=== PATIENT | female | born 1945 | race Caucasian/White ===

== ENCOUNTER 2017-11-13 13:18 | Emergency (ER) | payer MEDICARE, OTHER ==
[~2017-11-13] VITALS: Ht 172.7 cm; Wt 97.5 kg
[~2017-11-13 13:18] MED LIST: LEVSOD125 PO; PANT40 PO; ROSU10TA PO; TRIHYD253A PO
[2017-11-13 15:26] LABS: BASOPHILS ABSOLUTE AUTO 0.01 K/mm3 (0.00-0.23); BASOPHILS PERCENT AUTO 0 % (0-2); EOSINOPHILS ABSOLUTE AUTO 0.03 K/mm3 (0.00-0.68); EOSINOPHILS PERCENT AUTO 1 % (0-6); Hematocrit 44.6 % (33.0-51.0); Hemoglobin 14.8 g/dL (11.5-16.0); Mean Corpuscular HGB 31.3 pg (26.0-34.0); Mean Corpuscular HGB Conc 33.2 g/dL (31.5-36.5); Mean Corpuscular Volume 94 fL (80-100); Mean Platelet Volume 9.9 fL (9.1-12.4); Platelet Count 189 K/mm3 (150-400); RDW Standard Deviation 45.1 fL (35.1-46.3); Red Blood Cell Count 4.73 M/mm3 (3.80-5.20); White Blood Cell Count 5.36 K/mm3 (4.00-11.30)
[2017-11-13 15:37] LABS: IMMATURE GRAN ABSOLUTE AUTO 0.03 K/mm3 (0.00-0.10); IMMATURE GRAN PERCENT AUTO 1 % (0-1); LYMPHOCYTES ABSOLUTE AUTO 2.18 K/mm3 (0.84-5.20); LYMPHOCYTES PERCENT AUTO 41 % (21-46); MONOCYTES ABSOLUTE AUTO 0.45 K/mm3 (0.16-1.47); MONOCYTES PERCENT AUTO 8 % (4-13); NEUTROPHILS ABSOLUTE AUTO 2.66 K/mm3 (1.96-9.15); NEUTROPHILS PERCENT AUTO 50 % (41-73)
[2017-11-13 15:52] LABS: Alanine Aminotransfer (ALT/SGP 44 U/L (12-78); Albumin/Globulin Ratio 1.1 (0.8-1.8); Alk Phos 58 U/L (50-136); Anion Gap 9 mmol/L (6-16); Aspartate Aminotrans (AST/SGOT 38 U/L (12-37); Bilirubin, Total 0.4 mg/dL (0.1-1.0); Blood Urea Nitrogen 16 mg/dL (8-24); Bun/Creatinine Ratio 17.8 (12.0-20.0); CO2, Blood 29 mmol/L (21-32); Calcium, Blood 8.9 mg/dL (8.5-10.1); Chloride, Blood 104 mmol/L (98-108); Globulin, Blood 3.6 g/dL (2.2-4.0); Glomerular Filtration Rate >60 (60-); Glucose, Blood 110 mg/dL (70-99); Potassium, Blood 3.4 mmol/L (3.5-5.5); Sodium, Blood 142 mmol/L (136-145); Total Protein, Blood 7.6 g/dL (6.4-8.2)
[2017-11-13 16:46] LABS: Influenza A Negative (NEGATIVE); Influenza B Negative (NEGATIVE)
[2017-11-13] MEDS ORDERED: Prednisone20 MG PO (18:08)
[2017-11-13] MEDS ORDERED: ALBU90OI INH (18:08)
[2017-11-13] MEDS ORDERED: BENZ100A PO (18:08)
[2018-10-12] MEDS ORDERED: OXYC5 (17:23)
== END 2017-11-13 18:24 | disposition home or self-care (01) ==
LOC: ER 13:18
PROVIDERS: Physician Assistant
DX: J40 Bronchitis, not specified as acute or chronic (principal); Z88.8 Allergy status to other drugs, medicaments and biological substances; E03.9 Hypothyroidism, unspecified; F32.9 Major depressive disorder, single episode, unspecified; K21.9 Gastro-esophageal reflux disease without esophagitis; I10 Essential (primary) hypertension; E78.5 Hyperlipidemia, unspecified; Z87.891 Personal history of nicotine dependence
CPT/HCPCS: 36415; 71046; 80053; 85025; 87804; 94640; 99283

== ENCOUNTER 2018-10-12 12:02 | Inpatient (IN) | payer MEDICARE, OTHER ==
[~2018-10-12] VITALS: Ht 172.7 cm; Wt 106.4 kg
[~2018-10-12 12:02] MED LIST changes: +ALBU90OI INH; +BENZ100A PO; +Prednisone20 MG PO
[2018-10-12 12:50] LABS: BASOPHILS ABSOLUTE AUTO 0.04 K/mm3 (0.00-0.23); BASOPHILS PERCENT AUTO 0 % (0-2); EOSINOPHILS ABSOLUTE AUTO 0.26 K/mm3 (0.00-0.68); EOSINOPHILS PERCENT AUTO 2 % (0-6); Hematocrit 38.2 % (33.0-51.0); IMMATURE GRAN ABSOLUTE AUTO 0.03 K/mm3 (0.00-0.10); IMMATURE GRAN PERCENT AUTO 0 % (0-1); LYMPHOCYTES ABSOLUTE AUTO 2.41 K/mm3 (0.84-5.20); LYMPHOCYTES PERCENT AUTO 21 % (21-46); MONOCYTES ABSOLUTE AUTO 0.86 K/mm3 (0.16-1.47); MONOCYTES PERCENT AUTO 8 % (4-13); Mean Corpuscular HGB 31.2 pg (26.0-34.0); Mean Corpuscular HGB Conc 31.4 g/dL (31.5-36.5); Mean Corpuscular Volume 99 fL (80-100); Mean Platelet Volume 9.5 fL (9.1-12.4); NEUTROPHILS ABSOLUTE AUTO 7.73 K/mm3 (1.96-9.15); NEUTROPHILS PERCENT AUTO 68 % (41-73); Platelet Count 293 K/mm3 (150-400); RDW Coefficient Variation 13.2 % (11.7-14.2); RDW Standard Deviation 47.8 fL (35.1-46.3); Red Blood Cell Count 3.85 M/mm3 (3.80-5.20); White Blood Cell Count 11.33 K/mm3 (4.00-11.30)
[2018-10-12 13:12] LABS: Albumin, Blood 2.9 g/dL (3.4-5.0); Albumin/Globulin Ratio 0.7 (0.8-1.8); Bilirubin, Total 0.6 mg/dL (0.1-1.0); Bun/Creatinine Ratio 18.7 (12.0-20.0); Calcium, Blood 8.7 mg/dL (8.5-10.1); Creatinine, Blood 1.07 mg/dL (0.40-1.00); Globulin, Blood 4.1 g/dL (2.2-4.0); Potassium, Blood 4.5 mmol/L (3.5-5.5)
[2018-10-12 15:06] LABS: International Normalized Ratio 0.97
[2018-10-12 15:55] LABS: PCO2 Arterial 48.5 mmHg (35-45); PO2 Arterial 91.3 mmHg (80-100)
[2018-10-12] MEDS ORDERED: LEVSOD125 PO (17:22)
[2018-10-12] MEDS ORDERED: GABA300 PO (17:22)
[2018-10-12] MEDS ORDERED: CIPR250 PO (17:23)
[2018-10-12] MEDS ORDERED: OLME20 PO (17:23)
[2018-10-12] MEDS ORDERED: ATOR10 PO (17:23)
[2018-10-12] MEDS ORDERED: OXYC5 PO (17:23)
[2018-10-12 17:58] LABS: Source, Urine Catheter
[2018-10-12 18:08] LABS: Bilirubin, Urine Neg (Neg); Blood, Urine Neg (Neg); Glucose Qualitative, Urine Neg (Neg); Ketones, Urine Neg (Neg); Leukocyte Esterase, Urine Neg (Neg); Nitrite, Urine Neg (Neg); Protein, Urine Neg (Neg); Urobilinogen, Urine NORM (Normal)
[2018-10-12 18:21] LABS: Appearance, Urine Clear (Clear); Color, Urine Yellow (P-Yellow)
[2018-10-13 04:03] LABS: BASOPHILS ABSOLUTE AUTO 0.04 K/mm3 (0.00-0.23); BASOPHILS PERCENT AUTO 0 % (0-2); EOSINOPHILS ABSOLUTE AUTO 0.29 K/mm3 (0.00-0.68); EOSINOPHILS PERCENT AUTO 3 % (0-6); Hematocrit 33.3 % (33.0-51.0); Hemoglobin 10.7 g/dL (11.5-16.0); IMMATURE GRAN ABSOLUTE AUTO 0.05 K/mm3 (0.00-0.10); IMMATURE GRAN PERCENT AUTO 1 % (0-1); LYMPHOCYTES ABSOLUTE AUTO 2.25 K/mm3 (0.84-5.20); LYMPHOCYTES PERCENT AUTO 22 % (21-46); MONOCYTES ABSOLUTE AUTO 0.93 K/mm3 (0.16-1.47); MONOCYTES PERCENT AUTO 9 % (4-13); Mean Corpuscular HGB 31.5 pg (26.0-34.0); Mean Corpuscular HGB Conc 32.1 g/dL (31.5-36.5); Mean Corpuscular Volume 98 fL (80-100); Mean Platelet Volume 9.9 fL (9.1-12.4); NEUTROPHILS ABSOLUTE AUTO 6.72 K/mm3 (1.96-9.15); NEUTROPHILS PERCENT AUTO 65 % (41-73); Platelet Count 273 K/mm3 (150-400); RDW Standard Deviation 46.4 fL (35.1-46.3); White Blood Cell Count 10.28 K/mm3 (4.00-11.30)
[2018-10-13 04:20] LABS: Bun/Creatinine Ratio 18.3 (12.0-20.0); Calcium, Blood 8.7 mg/dL (8.5-10.1); Creatinine, Blood 1.09 mg/dL (0.40-1.00); Potassium, Blood 4.6 mmol/L (3.5-5.5)
[2018-10-14 05:38] LABS: BASOPHILS ABSOLUTE AUTO 0.03 K/mm3 (0.00-0.23); BASOPHILS PERCENT AUTO 0 % (0-2); EOSINOPHILS ABSOLUTE AUTO 0.36 K/mm3 (0.00-0.68); EOSINOPHILS PERCENT AUTO 4 % (0-6); Hematocrit 33.3 % (33.0-51.0); Hemoglobin 10.8 g/dL (11.5-16.0); IMMATURE GRAN ABSOLUTE AUTO 0.03 K/mm3 (0.00-0.10); IMMATURE GRAN PERCENT AUTO 0 % (0-1); LYMPHOCYTES ABSOLUTE AUTO 2.05 K/mm3 (0.84-5.20); LYMPHOCYTES PERCENT AUTO 24 % (21-46); MONOCYTES ABSOLUTE AUTO 0.83 K/mm3 (0.16-1.47); MONOCYTES PERCENT AUTO 10 % (4-13); Mean Corpuscular HGB 31.7 pg (26.0-34.0); Mean Corpuscular HGB Conc 32.4 g/dL (31.5-36.5); Mean Corpuscular Volume 98 fL (80-100); Mean Platelet Volume 9.5 fL (9.1-12.4); NEUTROPHILS ABSOLUTE AUTO 5.21 K/mm3 (1.96-9.15); NEUTROPHILS PERCENT AUTO 61 % (41-73); Platelet Count 299 K/mm3 (150-400); RDW Coefficient Variation 12.9 % (11.7-14.2); RDW Standard Deviation 45.9 fL (35.1-46.3); Red Blood Cell Count 3.41 M/mm3 (3.80-5.20); White Blood Cell Count 8.51 K/mm3 (4.00-11.30)
[2018-10-14 05:55] LABS: Bun/Creatinine Ratio 19.8 (12.0-20.0); Calcium, Blood 8.8 mg/dL (8.5-10.1); Creatinine, Blood 1.06 mg/dL (0.40-1.00); Potassium, Blood 4.3 mmol/L (3.5-5.5)
[2018-10-18 03:40] LABS: BASOPHILS ABSOLUTE AUTO 0.03 K/mm3 (0.00-0.23); BASOPHILS PERCENT AUTO 0 % (0-2); EOSINOPHILS ABSOLUTE AUTO 0.31 K/mm3 (0.00-0.68); EOSINOPHILS PERCENT AUTO 4 % (0-6); Hematocrit 33.9 % (33.0-51.0); Hemoglobin 10.5 g/dL (11.5-16.0); IMMATURE GRAN ABSOLUTE AUTO 0.03 K/mm3 (0.00-0.10); IMMATURE GRAN PERCENT AUTO 0 % (0-1); LYMPHOCYTES ABSOLUTE AUTO 2.38 K/mm3 (0.84-5.20); LYMPHOCYTES PERCENT AUTO 29 % (21-46); MONOCYTES ABSOLUTE AUTO 0.58 K/mm3 (0.16-1.47); MONOCYTES PERCENT AUTO 7 % (4-13); Mean Corpuscular HGB 30.3 pg (26.0-34.0); Mean Corpuscular Volume 98 fL (80-100); Mean Platelet Volume 9.5 fL (9.1-12.4); NEUTROPHILS ABSOLUTE AUTO 5.03 K/mm3 (1.96-9.15); NEUTROPHILS PERCENT AUTO 60 % (41-73); Platelet Count 358 K/mm3 (150-400); RDW Coefficient Variation 12.9 % (11.7-14.2); RDW Standard Deviation 45.8 fL (35.1-46.3); Red Blood Cell Count 3.46 M/mm3 (3.80-5.20); White Blood Cell Count 8.36 K/mm3 (4.00-11.30)
[2018-10-18 03:57] LABS: Anion Gap 9 mmol/L (6-16); Blood Urea Nitrogen 15 mg/dL (8-24); Bun/Creatinine Ratio 16.9 (12.0-20.0); CO2, Blood 26 mmol/L (21-32); Calcium, Blood 8.5 mg/dL (8.5-10.1); Chloride, Blood 111 mmol/L (98-108); Creatinine, Blood 0.89 mg/dL (0.40-1.00); Glomerular Filtration Rate >60 (60-); Glucose, Blood 100 mg/dL (70-99); Potassium, Blood 3.9 mmol/L (3.5-5.5); Sodium, Blood 146 mmol/L (136-145)
[2018-10-19] MEDS ORDERED: ACET325 PO (08:46)
[2018-10-19] MEDS ORDERED: VOLTAREN100 GM SC (08:48)
[2018-10-19] MEDS ORDERED: DOC250 PO (08:49)
[2018-10-19] MEDS ORDERED: SENN187 PO (08:50)
[2018-10-19] MEDS ORDERED: MIRALAX17 GM PO (08:52)
[2018-10-19] MEDS ORDERED: TRAZ100 PO (08:52)
[2018-10-19] MEDS ORDERED: FENTANYL1 EAC1 TOP ×2 (11:30→11:31)
== END 2018-10-19 12:00 | disposition home or self-care (01) | DRG 862 ==
LOC: ER 12:02 → PCU 18:09
PROVIDERS: Hospitalist; Internal Medicine; Physician Assistant
DX: T81.41XA Infection following a procedure, superficial incisional surgical site, initial encounter (principal); A41.9 Sepsis, unspecified organism; J18.9 Pneumonia, unspecified organism; J96.01 Acute respiratory failure with hypoxia; L76.34 Postprocedural seroma of skin and subcutaneous tissue following other procedure; E87.1 Hypo-osmolality and hyponatremia; N17.9 Acute kidney failure, unspecified; T81.44XA Sepsis following a procedure, initial encounter; R50.9 Fever, unspecified; I10 Essential (primary) hypertension; E78.5 Hyperlipidemia, unspecified; E03.9 Hypothyroidism, unspecified; G47.33 Obstructive sleep apnea (adult) (pediatric); F51.9 Sleep disorder not due to a substance or known physiological condition, unspecified; M54.9 Dorsalgia, unspecified; Z87.891 Personal history of nicotine dependence
CPT/HCPCS: 10030; 36415; 36600; 71046; 72132; 72158; 80048; 80053; 81003; 82803; 83605; 84145; 85025; 85610; 85730; 87040; 87070; 87075; 87081; 87086; 87205; 88108; 94640; 94760; 94762; 96365; 96367; 96375; 97116; 97140; 97162; 97166; 97530; 97535; 99285-25; A9577; G8978; G8979; G8980; G8987; G8988; J0456; J0696; J1170; J2405; J7050; J7120; Q9967

== ENCOUNTER 2018-11-21 07:39 | Day surgery (SDC) | payer MEDICARE, OTHER ==
[~2018-11-21] VITALS: Ht 172.7 cm; Wt 100.0 kg
[~2018-11-21 07:39] MED LIST changes: +ACET325 PO; +ATOR10 PO; +CIPR250 PO; +DOC250 PO; +FENTANYL1 EAC1 TOP; +GABA300 PO; +MIRALAX17 GM PO; +OLME20 PO; +OXYC5 PO; +SENN187 PO; +TRAZ100 PO; +VOLTAREN100 GM SC
--- NOTE | 2018-11-21 09:42 | NUR ---
NOT ABLE TO WITHDRAW BLOOD FROM PICC LINE. ORDER NOTED FOR CATH LITA. INSTILLED AND END CAP TAPED OFF. PT TEACHING ON MEDICATION
[2018-11-21] MEDS ORDERED: Dyazide 37.5-21 EACH PO (11:19)
[2018-11-21] MEDS ORDERED: OLME20 PO (11:19)
[2018-11-21] MEDS ORDERED: PROBIOTIC1 EAC1 PO (11:21)
[2018-11-21] MEDS ORDERED: GABA300 PO (11:22)
[2018-11-21] MEDS ORDERED: Flonase 0.05% N16 GM (11:23)
== END 2018-11-21 10:10 | disposition home or self-care (01) ==
LOC: ATC 07:39
DX: Z98.1 Arthrodesis status (principal); T81.40XD Infection following a procedure, unspecified, subsequent encounter; M62.81 Muscle weakness (generalized); M48.061 Spinal stenosis, lumbar region without neurogenic claudication; E03.9 Hypothyroidism, unspecified; E78.5 Hyperlipidemia, unspecified; Z45.2 Encounter for adjustment and management of vascular access device
CPT/HCPCS: 36593; 96365; J0878; J2997

== ENCOUNTER 2018-11-22 07:21 | Day surgery (SDC) | payer MEDICARE, OTHER ==
[~2018-11-22 07:21] MED LIST changes: +Dyazide 37.5-21 EACH PO; +Flonase 0.05% N16 GM; +PROBIOTIC1 EAC1 PO
[2018-11-23] MEDS ORDERED: DAPTOMYCIN500 MG IV (10:20)
== END 2018-11-22 08:35 | disposition home or self-care (01) ==
LOC: ATC 07:21
DX: Z98.1 Arthrodesis status (principal); T81.40XD Infection following a procedure, unspecified, subsequent encounter; M62.81 Muscle weakness (generalized); M48.061 Spinal stenosis, lumbar region without neurogenic claudication; E03.9 Hypothyroidism, unspecified; E78.5 Hyperlipidemia, unspecified
CPT/HCPCS: 96365; J0878

== ENCOUNTER 2018-11-23 08:54 | Day surgery (SDC) | payer MEDICARE, OTHER ==
[2018-11-23] MEDS ORDERED: DAPTOMYCIN500 MG IV (10:20)
== END 2018-11-23 09:47 | disposition home or self-care (01) ==
LOC: ATC 08:54
DX: H52.00 Hypermetropia, unspecified eye (principal); E03.9 Hypothyroidism, unspecified; F32.9 Major depressive disorder, single episode, unspecified; I10 Essential (primary) hypertension; E78.5 Hyperlipidemia, unspecified
CPT/HCPCS: 96365; J0878

== ENCOUNTER 2018-11-24 09:59 | Day surgery (SDC) | payer MEDICARE, OTHER ==
[~2018-11-24 09:59] MED LIST changes: +DAPTOMYCIN500 MG IV
== END 2018-11-24 10:37 | disposition home or self-care (01) ==
LOC: ATC 09:59
DX: T81.40XD Infection following a procedure, unspecified, subsequent encounter (principal); Z98.1 Arthrodesis status; M62.81 Muscle weakness (generalized); M48.061 Spinal stenosis, lumbar region without neurogenic claudication; E03.9 Hypothyroidism, unspecified; E78.5 Hyperlipidemia, unspecified
CPT/HCPCS: 96365; J0878

== ENCOUNTER 2018-11-25 00:03 | Day surgery (SDC) | payer MEDICARE, OTHER | END 2018-11-25 11:16 | disposition home or self-care (01) | LOC: ATC 00:03 | DX: Z98.1 Arthrodesis status (principal); T81.40XD Infection following a procedure, unspecified, subsequent encounter; M62.81 Muscle weakness (generalized); M48.061 Spinal stenosis, lumbar region without neurogenic claudication; E03.9 Hypothyroidism, unspecified; E78.5 Hyperlipidemia, unspecified | CPT/HCPCS: 96365; J0878 ==

== ENCOUNTER 2018-11-26 00:15 | Day surgery (SDC) | payer MEDICARE, OTHER ==
[2018-11-26 11:47] LABS: BASOPHILS ABSOLUTE AUTO 0.03 K/mm3 (0.00-0.23); BASOPHILS PERCENT AUTO 0 % (0-2); EOSINOPHILS ABSOLUTE AUTO 0.42 K/mm3 (0.00-0.68); EOSINOPHILS PERCENT AUTO 6 % (0-6); Hematocrit 38.6 % (33.0-51.0); IMMATURE GRAN ABSOLUTE AUTO 0.02 K/mm3 (0.00-0.10); IMMATURE GRAN PERCENT AUTO 0 % (0-1); LYMPHOCYTES ABSOLUTE AUTO 1.73 K/mm3 (0.84-5.20); LYMPHOCYTES PERCENT AUTO 25 % (21-46); MONOCYTES ABSOLUTE AUTO 0.58 K/mm3 (0.16-1.47); MONOCYTES PERCENT AUTO 8 % (4-13); Mean Corpuscular HGB 30.6 pg (26.0-34.0); Mean Corpuscular HGB Conc 31.1 g/dL (31.5-36.5); Mean Corpuscular Volume 99 fL (80-100); Mean Platelet Volume 10.4 fL (9.1-12.4); NEUTROPHILS ABSOLUTE AUTO 4.27 K/mm3 (1.96-9.15); NEUTROPHILS PERCENT AUTO 61 % (41-73); Platelet Count 247 K/mm3 (150-400); RDW Coefficient Variation 13.2 % (11.7-14.2); RDW Standard Deviation 46.7 fL (35.1-46.3); Red Blood Cell Count 3.92 M/mm3 (3.80-5.20); White Blood Cell Count 7.05 K/mm3 (4.00-11.30)
[2018-11-26 12:13] LABS: Alanine Aminotransfer (ALT/SGP 22 U/L (12-78); Albumin, Blood 3.6 g/dL (3.4-5.0); Albumin/Globulin Ratio 1.1 (0.8-1.8); Alk Phos 78 U/L (50-136); Anion Gap 8 mmol/L (6-16); Aspartate Aminotrans (AST/SGOT 13 U/L (12-37); Bilirubin, Total 0.2 mg/dL (0.1-1.0); Blood Urea Nitrogen 20 mg/dL (8-24); Bun/Creatinine Ratio 24.7 (12.0-20.0); C-REACTIVE PROTEIN, EXT RANGE 0.414 mg/dL (0.000-0.300); CO2, Blood 28 mmol/L (21-32); CPK Creatine Kinase 68 U/L (26-193); Calcium, Blood 8.8 mg/dL (8.5-10.1); Chloride, Blood 107 mmol/L (98-108); Creatine Kinase MB 1.2 ng/mL (0.0-3.6); Creatine Kinase MB Index 1.8 (0.0-4.0); Creatinine, Blood 0.81 mg/dL (0.40-1.00); Globulin, Blood 3.2 g/dL (2.2-4.0); Glomerular Filtration Rate >60 (60-); Glucose, Blood 99 mg/dL (70-99); Potassium, Blood 4.1 mmol/L (3.5-5.5); Sodium, Blood 143 mmol/L (136-145); Total Protein, Blood 6.8 g/dL (6.4-8.2)
== END 2018-11-26 11:22 | disposition home or self-care (01) ==
LOC: ATC 00:15
PROVIDERS: Internal Medicine
DX: T81.40XD Infection following a procedure, unspecified, subsequent encounter (principal); Z98.1 Arthrodesis status; M62.81 Muscle weakness (generalized); M48.061 Spinal stenosis, lumbar region without neurogenic claudication; E03.9 Hypothyroidism, unspecified; E78.5 Hyperlipidemia, unspecified
CPT/HCPCS: 80053; 82550; 82553; 85025; 86140; 96365; J0878

== ENCOUNTER 2018-11-27 00:16 | Day surgery (SDC) | payer MEDICARE, OTHER | END 2018-11-27 11:05 | disposition home or self-care (01) | LOC: ATC 00:16 | DX: T81.40XD Infection following a procedure, unspecified, subsequent encounter (principal); Z98.1 Arthrodesis status; M62.81 Muscle weakness (generalized); M48.061 Spinal stenosis, lumbar region without neurogenic claudication | CPT/HCPCS: 96365; J0878 ==

== ENCOUNTER 2018-11-28 00:08 | Day surgery (SDC) | payer MEDICARE, OTHER | END 2018-11-28 11:15 | disposition home or self-care (01) | LOC: ATC 00:08 | DX: T81.40XD Infection following a procedure, unspecified, subsequent encounter (principal); Z98.1 Arthrodesis status; M62.81 Muscle weakness (generalized); M48.061 Spinal stenosis, lumbar region without neurogenic claudication; E03.9 Hypothyroidism, unspecified; E78.5 Hyperlipidemia, unspecified | CPT/HCPCS: 96365; J0878 ==

== ENCOUNTER 2018-11-29 07:17 | Day surgery (SDC) | payer MEDICARE, OTHER ==
--- NOTE | 2018-11-29 12:22 | NUR ---
PT REPORTS ACHE IN HER R SHOULDER, SAME ARN PICC LINE. NO SWELLING OR REDNESS NOTED. RECOMMENDED TO PT THAT SHE GO TO ER TO HAVE IT CHECKED OUT, WARNED PT OF THE RISKS OF BLOOD CLOTS IN PICC ARM. PT DECLINED GOING TO ER. LEFT A MESSAGE AT DR RAJAN ANSWERING SERVICE RE PT C/O.
== END 2018-11-29 08:35 | disposition home or self-care (01) ==
LOC: ATC 07:17
DX: T81.42XD Infection following a procedure, deep incisional surgical site, subsequent encounter (principal); E03.9 Hypothyroidism, unspecified; F32.9 Major depressive disorder, single episode, unspecified; I10 Essential (primary) hypertension; E78.5 Hyperlipidemia, unspecified
CPT/HCPCS: 96365; J0878

== ENCOUNTER 2018-11-30 10:26 | Day surgery (SDC) | payer MEDICARE, OTHER | END 2018-11-30 11:13 | disposition home or self-care (01) | LOC: ATC 10:26 | DX: E87.1 Hypo-osmolality and hyponatremia (principal); N17.9 Acute kidney failure, unspecified; J18.1 Lobar pneumonia, unspecified organism; J96.01 Acute respiratory failure with hypoxia | CPT/HCPCS: 96365; J0878 ==

== ENCOUNTER 2018-12-01 10:40 | Day surgery (SDC) | payer MEDICARE, OTHER ==
--- NOTE | 2018-12-01 11:19 | NUR ---
EDUCATION REGARDING BP.
== END 2018-12-01 11:19 | disposition home or self-care (01) ==
LOC: ATC 10:40
DX: E87.1 Hypo-osmolality and hyponatremia (principal); N17.9 Acute kidney failure, unspecified; J18.1 Lobar pneumonia, unspecified organism; J96.01 Acute respiratory failure with hypoxia
CPT/HCPCS: 96365; J0878

== ENCOUNTER 2018-12-02 00:19 | Day surgery (SDC) | payer MEDICARE, OTHER | END 2018-12-02 11:03 | disposition home or self-care (01) | LOC: ATC 00:19 | DX: E87.1 Hypo-osmolality and hyponatremia (principal); N17.9 Acute kidney failure, unspecified; J18.1 Lobar pneumonia, unspecified organism; J96.01 Acute respiratory failure with hypoxia; E03.9 Hypothyroidism, unspecified; I10 Essential (primary) hypertension; E78.5 Hyperlipidemia, unspecified | CPT/HCPCS: 96365; J0878 ==

== ENCOUNTER 2018-12-03 00:03 | Day surgery (SDC) | payer MEDICARE, OTHER ==
[2018-12-03 10:24] LABS: BASOPHILS ABSOLUTE AUTO 0.03 K/mm3 (0.00-0.23); BASOPHILS PERCENT AUTO 0 % (0-2); EOSINOPHILS ABSOLUTE AUTO 0.25 K/mm3 (0.00-0.68); EOSINOPHILS PERCENT AUTO 3 % (0-6); Hematocrit 38.9 % (33.0-51.0); Hemoglobin 12.3 g/dL (11.5-16.0); IMMATURE GRAN ABSOLUTE AUTO 0.02 K/mm3 (0.00-0.10); IMMATURE GRAN PERCENT AUTO 0 % (0-1); LYMPHOCYTES ABSOLUTE AUTO 1.83 K/mm3 (0.84-5.20); LYMPHOCYTES PERCENT AUTO 25 % (21-46); MONOCYTES ABSOLUTE AUTO 0.63 K/mm3 (0.16-1.47); MONOCYTES PERCENT AUTO 9 % (4-13); Mean Corpuscular HGB 30.7 pg (26.0-34.0); Mean Corpuscular HGB Conc 31.6 g/dL (31.5-36.5); Mean Corpuscular Volume 97 fL (80-100); Mean Platelet Volume 10.2 fL (9.1-12.4); NEUTROPHILS ABSOLUTE AUTO 4.49 K/mm3 (1.96-9.15); NEUTROPHILS PERCENT AUTO 62 % (41-73); Platelet Count 235 K/mm3 (150-400); RDW Coefficient Variation 13.2 % (11.7-14.2); RDW Standard Deviation 47.6 fL (35.1-46.3); Red Blood Cell Count 4.01 M/mm3 (3.80-5.20); White Blood Cell Count 7.25 K/mm3 (4.00-11.30)
[2018-12-03 10:47] LABS: Albumin, Blood 3.5 g/dL (3.4-5.0); Albumin/Globulin Ratio 1.1 (0.8-1.8); Bilirubin, Total 0.4 mg/dL (0.1-1.0); Bun/Creatinine Ratio 27.7 (12.0-20.0); C-REACTIVE PROTEIN, EXT RANGE 1.09 mg/dL (0.000-0.300); Calcium, Blood 8.6 mg/dL (8.5-10.1); Creatine Kinase MB 1.5 ng/mL (0.0-3.6); Creatine Kinase MB Index 1.1 (0.0-4.0); Creatinine, Blood 0.97 mg/dL (0.40-1.00); Globulin, Blood 3.3 g/dL (2.2-4.0); Potassium, Blood 4.1 mmol/L (3.5-5.5); Total Protein, Blood 6.8 g/dL (6.4-8.2)
== END 2018-12-03 10:42 | disposition home or self-care (01) ==
LOC: ATC 00:03
PROVIDERS: Internal Medicine
DX: E87.1 Hypo-osmolality and hyponatremia (principal); N17.9 Acute kidney failure, unspecified; J18.1 Lobar pneumonia, unspecified organism; J96.01 Acute respiratory failure with hypoxia
CPT/HCPCS: 80053; 82550; 82553; 85025; 86140; 96365; J0878

== ENCOUNTER 2018-12-04 00:09 | Day surgery (SDC) | payer MEDICARE, OTHER | END 2018-12-04 10:29 | disposition home or self-care (01) | LOC: ATC 00:09 | DX: E87.1 Hypo-osmolality and hyponatremia (principal); N17.9 Acute kidney failure, unspecified; J18.1 Lobar pneumonia, unspecified organism; J96.01 Acute respiratory failure with hypoxia | CPT/HCPCS: 96365; J0878 ==

== ENCOUNTER 2018-12-05 00:20 | Day surgery (SDC) | payer MEDICARE, OTHER | END 2018-12-05 11:02 | disposition home or self-care (01) | LOC: ATC 00:20 | DX: J18.1 Lobar pneumonia, unspecified organism (principal); E87.1 Hypo-osmolality and hyponatremia; N17.9 Acute kidney failure, unspecified; J96.01 Acute respiratory failure with hypoxia; E03.9 Hypothyroidism, unspecified; I10 Essential (primary) hypertension; F32.9 Major depressive disorder, single episode, unspecified; K21.9 Gastro-esophageal reflux disease without esophagitis | CPT/HCPCS: 96365; J0878 ==

== ENCOUNTER 2018-12-06 00:14 | Day surgery (SDC) | payer MEDICARE, OTHER ==
[~2018-12-06] VITALS: Ht 172.7 cm; Wt 106.0 kg
== END 2018-12-06 10:50 | disposition home or self-care (01) ==
LOC: ATC 00:14
DX: E87.1 Hypo-osmolality and hyponatremia (principal); N17.9 Acute kidney failure, unspecified; J18.1 Lobar pneumonia, unspecified organism; J96.01 Acute respiratory failure with hypoxia
CPT/HCPCS: 96365; J0878

== ENCOUNTER 2019-06-19 09:49 | Day surgery (SDC) | payer MEDICARE, OTHER ==
--- NOTE | 2019-06-19 11:17 | NUR ---
PT HAS BANDAID IN PLACE CDI ON LOWER MID BACK. PT HAS NO COMPLAINTS AT THIS TIME.
--- NOTE | 2019-06-19 13:09 | NUR ---
Discharge instructions reviewed with patient. Patient verbalizes understanding. Copy given to patient to take home. PT HAS NO QUESTIONS OR CONCERNS WITH D.C PT STABLE. PT DRIVING SELF HOME. PT WALKED OUT.
== END 2019-06-19 23:36 | disposition home or self-care (01) ==
LOC: RAD 09:49 → CT 11:00 → RAD 23:36
DX: M51.26 Other intervertebral disc displacement, lumbar region (principal); M47.816 Spondylosis without myelopathy or radiculopathy, lumbar region; M48.07 Spinal stenosis, lumbosacral region; I10 Essential (primary) hypertension; J45.909 Unspecified asthma, uncomplicated; G47.30 Sleep apnea, unspecified; F32.9 Major depressive disorder, single episode, unspecified; E66.9 Obesity, unspecified; Z99.89 Dependence on other enabling machines and devices; Z91.040 Latex allergy status; Z79.899 Other long term (current) drug therapy; Z87.891 Personal history of nicotine dependence; Z88.8 Allergy status to other drugs, medicaments and biological substances; Z98.1 Arthrodesis status
CPT/HCPCS: 62304; 72132; Q9966

== ENCOUNTER → 2019-07-14 | Outpatient (CLI) | payer MEDICARE, OTHER | END | disposition home or self-care (01) | LOC: PLD 08:00 → LAB SHORT 08:00 | DX: L30.8 Other specified dermatitis (principal) | CPT/HCPCS: 88305; 88312 ==

== ENCOUNTER → 2020-12-06 | Outpatient (CLI) | payer MEDICARE, OTHER | END | disposition home or self-care (01) | LOC: LAB SHORT 16:06 → LAB 16:06 → LAB FUT 11-11 16:40 | DX: R10.13 Epigastric pain (principal) | CPT/HCPCS: 87338 ==

== ENCOUNTER → 2021-04-05 | Outpatient (CLI) | payer MEDICARE, OTHER | END | disposition home or self-care (01) | LOC: LAB 09:00 → LAB SHORT 09:00 | DX: R10.13 Epigastric pain (principal) | CPT/HCPCS: 87338 ==

== ENCOUNTER → 2022-06-29 | Outpatient (CLI) | payer MEDICARE, OTHER ==
[2022-06-30 09:37] LABS: Stool Occult Bld Immuno 1 Negative (NEGATIVE); Stool Occult Bld Immuno 2 Negative (NEGATIVE)
== END | disposition home or self-care (01) ==
LOC: LAB SHORT 06-28 12:00 → LAB 12:00
PROVIDERS: Internal Medicine
DX: R19.5 Other fecal abnormalities (principal)
CPT/HCPCS: 82274

== ENCOUNTER → 2022-09-11 | Outpatient (CLI) | payer MEDICARE, OTHER | LOC: LAB 15:05 → LAB SHORT 15:05 | DX: L08.0 Pyoderma (principal) | CPT/HCPCS: 87070; 87077; 87147; 87186; 87205 ==

== ENCOUNTER 2022-11-14 13:10 | Day surgery (SDC) | payer MEDICARE, OTHER ==
[~2022-11-14] VITALS: Ht 172.7 cm; Wt 106.1 kg
[2022-11-14] MEDS ORDERED: OMEP20ER PO (14:06)
[2022-11-14] MEDS ORDERED: LOSA25 PO (14:06)
--- NOTE | 2022-11-14 14:20 | NUR ---
11/14/22 1420 Padmini Lugo CALL LIGHT WITHIN REACH.
== END 2022-11-14 16:06 | disposition home or self-care (01) ==
LOC: ORSCSDS 13:10
PROVIDERS: Surgery
PROC: 0DJD8ZZ Inspection of Lower Intestinal Tract, Via Natural or Artificial Opening Endoscopic (ICD-10-PCS; principal; 2022-11-14 14:15)
DX: K21.9 Gastro-esophageal reflux disease without esophagitis (principal); Z12.11 Encounter for screening for malignant neoplasm of colon; Z86.010 Personal history of colon polyps; G47.33 Obstructive sleep apnea (adult) (pediatric); K57.30 Diverticulosis of large intestine without perforation or abscess without bleeding; I10 Essential (primary) hypertension; I50.9 Heart failure, unspecified; E66.9 Obesity, unspecified; Z68.35 Body mass index [BMI] 35.0-35.9, adult; Z87.891 Personal history of nicotine dependence; F32.A Depression, unspecified; E03.9 Hypothyroidism, unspecified; Z79.899 Other long term (current) drug therapy; Z85.828 Personal history of other malignant neoplasm of skin
CPT/HCPCS: 88305; 88342; A9270; J2704; J7120

== ENCOUNTER → 2023-03-12 | Outpatient (CLI) | payer MEDICARE, OTHER ==
[~2023-03-12] MED LIST changes: +LOSA25 PO; +OMEP20ER PO
== END | disposition home or self-care (01) ==
LOC: PLD 14:54 → LAB SHORT 14:54
DX: D23.39 Other benign neoplasm of skin of other parts of face (principal); L81.4 Other melanin hyperpigmentation
CPT/HCPCS: 88305

== ENCOUNTER → 2023-09-25 | Outpatient (CLI) | payer MEDICARE, OTHER | LOC: PLD 08:11 → LAB SHORT 08:11 | DX: D48.5 Neoplasm of uncertain behavior of skin (principal) | CPT/HCPCS: 88305 ==

== ENCOUNTER → 2023-12-21 | Outpatient (CLI) | payer MEDICARE, OTHER ==
[2023-12-25 12:26] LABS: Adenovirus F 40/41 Not Detected (NOT DETECT); Astrovirus Not Detected (NOT DETECT); Campylobacter Sp Detected (NOT DETECT); Cryptosporidium Not Detected (NOT DETECT); Cyclospora Cayetanensis Not Detected (NOT DETECT); E. Coli O157 Not Detected (NOT DETECT); Entamoeba Histolytica Not Detected (NOT DETECT); Enteroaggregative E. coli-EAEC Not Detected (NOT DETECT); Enteropathogenic E. coli-EPEC Not Detected (NOT DETECT); Enterotoxigenic E. coli-ETEC Not Detected (NOT DETECT); Giardia Lamblia Not Detected (NOT DETECT); Norovirus GI/GII Not Detected (NOT DETECT); Plesiomonas Shigelloides Not Detected (NOT DETECT); Rotavirus A Not Detected (NOT DETECT); Salmonella Sp Not Detected (NOT DETECT); Sapovirus Not Detected (NOT DETECT); Shiga Toxin-prod E. coli-STEC Not Detected (NOT DETECT); Shigella/Enteroin E. coli-EIEC Not Detected (NOT DETECT); Vibrio Cholerae Not Detected (NOT DETECT); Vibrio Sp Not Detected (NOT DETECT); Yersinia Enterocolitica Not Detected (NOT DETECT)
== END | disposition home or self-care (01) ==
LOC: LAB SHORT 09:00
PROVIDERS: Internal Medicine
DX: R19.7 Diarrhea, unspecified (principal)
CPT/HCPCS: 87507

== ENCOUNTER 2024-11-06 08:37 | Emergency (ER) | payer MEDICARE, OTHER ==
[~2024-11-06] VITALS: Ht 172.7 cm; Wt 110.0 kg
[2024-11-06] MEDS ORDERED: FentaNYL Citrate 50 MCG/ML 2 ML Injection IV ONE (09:35)
[2024-11-06] MEDS ORDERED: Ondansetron HCl 2 MG / ML 2ML Vial IV ONE (09:35)
[2024-11-06] MEDS ORDERED: NS 1,000 ML IV SCH (09:35)
[2024-11-06 09:47] LABS: BASOPHILS ABSOLUTE AUTO 0.04 K/mm3 (0.00-0.23); BASOPHILS PERCENT AUTO 0 % (0-2); EOSINOPHILS ABSOLUTE AUTO 0.13 K/mm3 (0.00-0.68); EOSINOPHILS PERCENT AUTO 1 % (0-6); Hematocrit 43.1 % (33.0-51.0); Hemoglobin 14.4 g/dL (11.5-16.0); IMMATURE GRAN ABSOLUTE AUTO 0.05 K/mm3 (0.00-0.10); IMMATURE GRAN PERCENT AUTO 0 % (0-1); LYMPHOCYTES ABSOLUTE AUTO 2.25 K/mm3 (0.84-5.20); LYMPHOCYTES PERCENT AUTO 16 % (21-46); MONOCYTES ABSOLUTE AUTO 1.03 K/mm3 (0.16-1.47); MONOCYTES PERCENT AUTO 7 % (4-13); Mean Corpuscular HGB 32.1 pg (26.0-34.0); Mean Corpuscular HGB Conc 33.4 g/dL (31.5-36.5); Mean Corpuscular Volume 96 fL (80-100); Mean Platelet Volume 10.1 fL (9.1-12.4); NEUTROPHILS ABSOLUTE AUTO 10.48 K/mm3 (1.96-9.15); NEUTROPHILS PERCENT AUTO 75 % (41-73); Platelet Count 247 K/mm3 (150-400); RDW Coefficient Variation 13.2 % (11.7-14.2); Red Blood Cell Count 4.49 M/mm3 (3.80-5.20); White Blood Cell Count 13.98 K/mm3 (4.00-11.30)
[2024-11-06] MEDS ORDERED: TORS10 PO (09:55)
[2024-11-06] MEDS ORDERED: LOSA50 PO (09:55)
[2024-11-06] MEDS ORDERED: ESOMEPRAZOLE MA40 MG PO (09:55)
[2024-11-06] MEDS ORDERED: EUTHYROX137 MC1 PO (09:55)
[2024-11-06 10:04] LABS: Albumin, Blood 3.4 g/dL (3.4-5.0); Albumin/Globulin Ratio 0.9 (0.8-1.8); Bilirubin, Total 0.6 mg/dL (0.1-1.0); Calcium, Blood 9.4 mg/dL (8.5-10.1); Creatinine, Blood 0.86 mg/dL (0.40-1.00); Globulin, Blood 3.7 g/dL (2.2-4.0); Total Protein, Blood 7.1 g/dL (6.4-8.2)
[2024-11-06] MEDS ORDERED: METR500 PO (10:58)
[2024-11-06] MEDS ORDERED: CIPR500 PO (10:58)
[2024-11-06 11:12] VITALS: BP 141/67
== END 2024-11-06 11:37 | disposition home or self-care (01) ==
LOC: ER 08:37
PROVIDERS: Emergency Medicine
DX: K57.32 Diverticulitis of large intestine without perforation or abscess without bleeding (principal); I10 Essential (primary) hypertension; E78.5 Hyperlipidemia, unspecified; E03.9 Hypothyroidism, unspecified; G47.30 Sleep apnea, unspecified; K21.9 Gastro-esophageal reflux disease without esophagitis; Z87.891 Personal history of nicotine dependence; Z79.51 Long term (current) use of inhaled steroids; Z79.899 Other long term (current) drug therapy; Z91.040 Latex allergy status; Z91.013 Allergy to seafood; Z88.8 Allergy status to other drugs, medicaments and biological substances
CPT/HCPCS: 74177; 80053; 83690; 85025; 96361; 96374-59; 96375; 99284-25; J2405; J3010; J7030; Q9967

== ENCOUNTER 2024-12-18 14:13 | Day surgery (SDC) | payer MEDICARE, OTHER ==
[~2024-12-18] VITALS: Ht 172.7 cm; Wt 108.5 kg
[~2024-12-18 14:13] MED LIST changes: +BUDESONIDE0.5 MG/2 M INH; +CIPR500 PO; +ESOMEPRAZOLE MA40 MG PO; +EUTHYROX137 MC1 PO; +FORMOTEROL20 MCG/2 M INH; +METR500 PO; +TORS10 PO
[2024-12-18] MEDS ORDERED: Lactated Ringer's 1,000 ML IV SCH (14:40)
[2024-12-18 14:45] VITALS: BP 157/86
--- NOTE | 2024-12-18 14:48 | NUR ---
Ambulatory in Day Surgery. History, Chart, Medications and Allergies reviewed before start of procedure. Lungs clear T/O to Auscultation. Patient confirms NPO status and agrees with scheduled surgery. Pre-Op teaching done. Pt verbalizes understanding. Patient States Post-Procedure ride home has been arranged.
[2024-12-18] MEDS ORDERED: Lidocaine HCl 4% 5 ML SDA ONE (15:07)
[2024-12-18] MEDS ORDERED: propofoL 40 ML IV ONE (15:27)
--- NOTE | 2024-12-18 15:37 | NUR ---
12/18/24 1537 Dominique Okeefe MONITOR INTACT WITH CONTINUOUS PULSE OXIMETRY, CONTINUOUS END TITAL CO2, 3-LEAD EKG AND INTERMITTENT BLOOD PRESSURE.
[2024-12-18 15:55] VITALS: BP 129/77
--- NOTE | 2024-12-18 16:03 | NUR ---
REPORT RECEIVED FROM MARIELA WARE. VSS. PT ON RA. PT [id number]&[id number]. PT ABLE TO REPOSITION SELF IN BED. PT REQUESTING PO FLUIDS AND TOLERATING THEM WELL. PT DENIES PAIN, NAUSEA OR OTHER DISCOMFORTS.
[2024-12-18 16:10] VITALS: BP 142/71
== END 2024-12-18 16:20 | disposition home or self-care (01) ==
LOC: ORSCMMR 14:13 → ORD 14:30 → ORSCMMR 14:30
PROVIDERS: Surgery
PROC: 0DB68ZX Excision of Stomach, Via Natural or Artificial Opening Endoscopic, Diagnostic (ICD-10-PCS; principal; 2024-12-18 14:30)
PROC: 0DB48ZX Excision of Esophagogastric Junction, Via Natural or Artificial Opening Endoscopic, Diagnostic (ICD-10-PCS; principal; 2024-12-18 14:30)
DX: K21.9 Gastro-esophageal reflux disease without esophagitis (principal); K22.70 Barrett's esophagus without dysplasia; J45.909 Unspecified asthma, uncomplicated; K29.70 Gastritis, unspecified, without bleeding; F32.A Depression, unspecified; E78.5 Hyperlipidemia, unspecified; I10 Essential (primary) hypertension; E03.9 Hypothyroidism, unspecified; G47.33 Obstructive sleep apnea (adult) (pediatric); E66.9 Obesity, unspecified; Z68.36 Body mass index [BMI] 36.0-36.9, adult; Z87.891 Personal history of nicotine dependence; Z79.899 Other long term (current) drug therapy
CPT/HCPCS: 88305; 88342; J2003; J2704; J7120